=== PATIENT | male | born 1965 | race Caucasian/White ===

== ENCOUNTER 2019-05-19 19:50 | Emergency (ER) | payer MEDICAID ==
[~2019-05-19] VITALS: Ht 185.4 cm; Wt 95.3 kg
--- NOTE | 2019-05-19 19:50 | NUR ---
Patient triaged and placed in waiting room. VSS and patient appears in no acute distress at this time. Accompanied by SELF, awaiting available bed, and MD notified of need for MSE.
[2019-05-19 19:55] VITALS: BP_SYST 157
--- NOTE | 2019-05-19 23:45 | NUR ---
Patient to ER bed 4 to gown for evaluation. Side rails up. Report given to Osmar OHARA.
--- NOTE | 2019-05-20 | NUR ---
Pt brought in by self. Pt states that he has had problems with his trach tube falling out. Pt states that he doesnt need it anymore, he just has yet to have it removed. Pt denies pain, nausea, vomiting, diarrhea, shortness of breath or chest pain. Pt Awake, alert, oriented x4. Pt denies any other medical complaint at this time. VSS
--- NOTE | 2019-05-20 00:05 | NUR ---
ER at bedside examining patient.
--- NOTE | 2019-05-20 01:30 | NUR ---
Pt resting in ED bed comfortably. No s/s of distress.
[2019-05-20 02:23] VITALS: BP_SYST 147
--- NOTE | 2019-05-20 02:23 | NUR ---
Patient given written and verbal discharge instructions and verbalizes understanding. ER MD discussed with patient the results and treatment provided. Patient in stable condition. ID arm band removed. No IV Catheter No RX given. Patient educated on pain management and to follow up with PMD. Pain Scale 0/10. Opportunity for questions provided and answered.
== END 2019-05-20 02:23 | disposition home or self-care (01) ==
LOC: SED 19:50
DX: J95.03 Malfunction of tracheostomy stoma (principal); K94.23 Gastrostomy malfunction; F17.200 Nicotine dependence, unspecified, uncomplicated; Z71.6 Tobacco abuse counseling
CPT/HCPCS: 71045; 99283

== ENCOUNTER 2019-12-02 20:41 | Emergency (ER) | payer MEDICAID ==
[~2019-12-02] VITALS: Ht 185.4 cm; Wt 108.9 kg
[2019-12-02 21:20] VITALS: BP_SYST 151
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
--- NOTE | 2019-12-02 21:20 | NUR ---
PT WAITING IN TRIAGE CURRENTLY, WAITING FOR ER BED.
--- NOTE | 2019-12-02 21:35 | NUR ---
ER Dr. HAWLEY IN TRIAGE EXAMINING PT BECAUSE PT DOES NOT WANT TO GO INTO ER IN FEAR OF BEING EXPOSED TO COVID 19.
[2019-12-02 21:54] VITALS: BP_SYST 151
--- NOTE | 2019-12-02 22:41 | NUR ---
Patient given written and verbal discharge instructions and verbalizes understanding. ER MD discussed with patient the results and treatment provided. Patient in stable condition. ID arm band removed. IV catheter removed intact and dressing applied, no active bleeding. Patient educated on pain management and to follow up with PMD. Opportunity for questions provided and answered. Medication side effect fact sheet provided.
== END 2019-12-02 21:54 | disposition home or self-care (01) ==
LOC: SED 20:41
DX: R00.2 Palpitations (principal); Z88.5 Allergy status to narcotic agent; Z88.6 Allergy status to analgesic agent
CPT/HCPCS: 93005; 99283

== ENCOUNTER 2021-01-01 12:40 | Emergency (ER) | payer MEDICAID ==
[~2021-01-01] VITALS: Ht 185.4 cm; Wt 110.2 kg
[2021-01-01 12:45] VITALS: BP_SYST 119
--- NOTE | 2021-01-01 12:50 | NUR ---
Patient to ER bed 4 to gown for evaluation. Side rails up.
--- NOTE | 2021-01-01 12:51 | NUR ---
EKG DONE AND GIVEN TO
--- NOTE | 2021-01-01 13:00 | NUR ---
PT ARRIVES FROM HOME W/ C/O HEART PALPITATIONS UPON EXCERTION. PT STATES, "THAT HE CAN SEE THE HEART PALPITATIONS IN HIS EYS". PT HAS HX OF ASTHMA, USES INHALERS AT HOME
[2021-01-01 13:26] LABS: BASOPHILS # (AUTO) 0.1 K/uL (0.0-0.2); BASOPHILS % (AUTO) 0.8 % (0.0-2.0); EOSINOPHILS # (AUTO) 0.1 K/uL (0.0-0.4); EOSINOPHILS % (AUTO) 1.8 % (0.0-4.0); HEMATOCRIT 47.5 % (36-54); HEMOGLOBIN 16.1 g/dL (14.0-18.0); LYMPHOCYTES # (AUTO) 1.5 K/uL (1.0-5.5); LYMPHOCYTES % (AUTO) 22.4 % (20.5-51.5); MEAN CORPUSCULAR HEMOGLOBIN 29 pg (27-31); MEAN CORPUSCULAR HGB CONC 34 % (32-36); MEAN CORPUSCULAR VOLUME 86 fL (79.0-98.0); MONOCYTES # (AUTO) 0.5 K/uL (0.0-1.0); MONOCYTES % (AUTO) 7.4 % (1.7-9.3); NEUTROPHILS # (AUTO) 4.7 K/uL (1.8-7.7); NEUTROPHILS % (AUTO) 67.6 % (40.0-70.0); PLATELET COUNT (AUTO) 221 K/uL (130-430); RED BLOOD CELL COUNT(AUTO) 5.53 MIL/uL (4.2-6.2); RED CELL DISTRIBUTION WIDTH 14.8 % (9.0-15.0); WHITE BLOOD COUNT (AUTO) 6.9 K/uL (4.8-10.8)
--- NOTE | 2021-01-01 14:10 | NUR ---
CAROLYN Ziegler at bedside examining patient.
[2021-01-01 14:19] LABS: ANION GAP 9 (5-15); CALCIUM 9.1 mg/dL (8.4-11.0); CHLORIDE 106 mmol/L (98-107); GLUCOSE 123 mg/dL (70-99); POTASSIUM 3.8 mmol/L (3.5-5.1); SODIUM SERUM 140 mmol/L (136-145)
[2021-01-01 14:20] LABS: ALANINE AMINOTRANSFERASE 38 U/L (12-78); ALBUMIN 3.7 g/dL (3.4-4.8); ASPARTATE AMINOTRANSFERASE 24 U/L (10-37); CREATININE 0.92 mg/dL (0.55-1.30); GFR AFRICAN AMERICAN 109 mL/min (>90); TOTAL BILIRUBIN 0.4 mg/dL (0.0-1.0); UREA NITROGEN, BLOOD 16 mg/dL (8-21)
[2021-01-01 14:28] VITALS: BP_SYST 119
--- NOTE | 2021-01-01 14:30 | NUR ---
Patient given written and verbal discharge instructions and verbalizes understanding. ER MD discussed with patient the results and treatment provided. Patient in stable condition. ID arm band removed. Patient educated on pain management and to follow up with PMD. Pain Scale 0/10. Opportunity for questions provided and answered. Medication side effect fact sheet provided.
== END 2021-01-01 14:30 | disposition home or self-care (01) ==
LOC: SED 12:40
DX: R00.2 Palpitations (principal); J45.909 Unspecified asthma, uncomplicated; Z88.8 Allergy status to other drugs, medicaments and biological substances
CPT/HCPCS: 36415; 71045; 80053; 83880; 84484; 85025; 93005; 99285

== ENCOUNTER 2021-09-06 00:39 | Emergency (ER) | payer MEDICAID ==
[~2021-09-06] VITALS: Ht 185.4 cm; Wt 112.5 kg
[2021-09-06 00:40] VITALS: BP_SYST 102
--- NOTE | 2021-09-06 00:40 | NUR ---
Placed in room 05 . Placed on security monitor, blood pressure machine and pulse oximeter. To gown for exam. Side rails up. Report given to LEV Kaur
--- NOTE | 2021-09-06 00:45 | NUR ---
Patient states, "at 8:30 pm last night, I drank ocean spray cranberry juice and I felt pain." PAtient sitting in bed with no s/s of distress. Patient states pain is 7/10. Addendum: 09/06/21 at 0418 by [email or web address] Patient states, "at 8:30 pm last night, I drank ocean spray cranberry juice and I felt pain." PAtient sitting in bed with no s/s of distress. Patient states pain is 710. PAtient placed on 2L NC, oxygen saturation 98%.
[2021-09-06] MEDS ORDERED: ASPIRIN 81 MG TAB.CHEW PO ONE ×2 (01:15→09:00)
[2021-09-06] MEDS ORDERED: ASPIRIN 81 MG TAB.CHEW ONE (01:30)
[2021-09-06] MEDS: MAG HYDROX/AL HYDROX/SIMETH 30 ML, LIDOCAINE VISCOUS 2% 15ML (PO) 15 ML, DICYCLOMINE HC... PO ONE ×6 (01:35→02:03)
[2021-09-06 01:39] LABS: HEMOGLOBIN 12.2 g/dL (14.0-18.0)
[2021-09-06] MEDS ORDERED: DICYCLOMINE HCL 10 MG/5 ML SOLUTION ONE (01:39)
[2021-09-06] MEDS ORDERED: MAG-AL HYDROX/SIMETH 30 ML UDC ONE (01:39)
[2021-09-06] MEDS ORDERED: LIDOCAINE VISCOUS 2%, 15 ML UDC ONE (01:44)
[2021-09-06] MEDS ORDERED: DICYCLOMINE HCL 10 MG CAPSULE ONE (01:49)
[2021-09-06 01:53] LABS: BASOPHILS % (AUTO) 0.4 % (0.0-2.0); EOSINOPHILS # (AUTO) 0.3 K/uL (0.0-0.4); EOSINOPHILS % (AUTO) 2.6 % (0.0-4.0); HEMATOCRIT 36.3 % (36-54); LYMPHOCYTES # (AUTO) 2.1 K/uL (1.0-5.5); LYMPHOCYTES % (AUTO) 20.3 % (20.5-51.5); MEAN CORPUSCULAR HEMOGLOBIN 29 pg (27-31); MEAN CORPUSCULAR HGB CONC 34 % (32-36); MEAN CORPUSCULAR VOLUME 85 fL (79.0-98.0); MONOCYTES # (AUTO) 1.3 K/uL (0.0-1.0); MONOCYTES % (AUTO) 13.2 % (1.7-9.3); NEUTROPHILS # (AUTO) 6.5 K/uL (1.8-7.7); NEUTROPHILS % (AUTO) 63.5 % (40.0-70.0); PLATELET COUNT (AUTO) 289 K/uL (130-430); RED CELL DISTRIBUTION WIDTH 14.9 % (9.0-15.0); WHITE BLOOD COUNT (AUTO) 10.2 K/uL (4.8-10.8)
[2021-09-06 02:13] LABS: ANION GAP 9 (5-15); CALCIUM 8.9 mg/dL (8.4-11.0); CHLORIDE 102 mmol/L (98-107); CREATININE 1.16 mg/dL (0.55-1.30); GLUCOSE 99 mg/dL (70-99); POTASSIUM 3.4 mmol/L (3.5-5.1); SODIUM SERUM 138 mmol/L (136-145); UREA NITROGEN, BLOOD 19 mg/dL (8-21)
[2021-09-06 02:23] LABS: ALANINE AMINOTRANSFERASE 68 U/L (12-78); ALBUMIN 2.7 g/dL (3.4-4.8); ASPARTATE AMINOTRANSFERASE 50 U/L (10-37); TOTAL BILIRUBIN 0.4 mg/dL (0.0-1.0)
[2021-09-06 02:24] LABS: GFR AFRICAN AMERICAN 83 mL/min (>90)
--- NOTE | 2021-09-06 02:30 | NUR ---
Patient lying in bed, no s/s of distress. Patient A/Ox4, resting in bed with eyes open. Addendum: 09/06/21 at 0424 by [email or web address] Patient lying in bed, no s/s of distress. Patient A/Ox4, resting in bed with eyes open, with 2L NC O2 saturation 95%
[2021-09-06] MEDS ORDERED: LIP20 PO (02:55)
[2021-09-06] MEDS ORDERED: LISI10TA29 PO (02:55)
[2021-09-06] MEDS ORDERED: MORPHINE 4 MG INJ. 4 MG/ML VIAL IVP ONE ×3 (03:00→04:45)
[2021-09-06] MEDS ORDERED: LISINOPRIL 10 MG TABLET (PRINIVIL) PO ONE (03:00)
[2021-09-06] MEDS ORDERED: NITROGLYCERIN 0.4 MG TAB.SUBL SL PRN (03:00)
[2021-09-06] MEDS ORDERED: NITROGLYCERIN 0.4 MG TAB.SUBL SL ONE (03:00)
--- NOTE | 2021-09-06 03:06 | NUR ---
Admit bed requested Patient will be admitted to care of . Admitted to Tele unit. Diagnosis: Chest Pain Inpatient Yes Observation No Orientation concerns or request close to nursing station NO Covid Status (pending at this time) On vent or bipap No Isolation requirements (Pending covid results) Needs a sitter NO From Home No Requires Dialysis NO Med Rec Completed Yes
--- NOTE | 2021-09-06 03:25 | NUR ---
Patient lying in bed, no s/s of distress. Patient A/Ox4, resting in bed with eyes open, with 2L NC O2 saturation 97%. Patient stated "the medication that you gave earlier for pain didn't help." Dr. Earl verbally informed. Dr. Earl verbalized understanding, stated that he will put in pain medication orders.
--- NOTE | 2021-09-06 03:28 | NUR ---
Dr. Fonseca notified via telephone of patient's current BP of 91.[address] Fonseca stated, "Don't give morphine. Give nitropaste and sublingual Nitroglycerin." Readback complete. Addendum: 09/06/21 at [email or web address] Fonseca notified via telephone of patient's current BP of 91.58 HR 69, and medication orders which Dr. Earl ordered, including; Nitropaste, Nitroglycerin and Morphine. Dr. Fonseca stated, "Don't give morphine. Give nitropaste and sublingual Nitroglycerin." Readback complete.
[2021-09-06] MEDS ORDERED: NS 500 ML IV ONE ×2 (03:30→04:30)
--- NOTE | 2021-09-06 03:45 | NUR ---
Patient received 1 pill sublingual Nitroglycerin. No change in patient's pain. Patient states pain is 9/10.
[2021-09-06] MEDS: NITROGLYCERIN 1 INCH (GM) OINT. TP ONE ×2 (03:48→03:49)
--- NOTE | 2021-09-06 03:50 | NUR ---
Patient received 1 pill sublingual Nitroglycerin. No change in patient's pain. Patient states pain is still 9/10.
--- NOTE | 2021-09-06 03:55 | NUR ---
Patient received 1 pill sublingual Nitroglycerin. No change in patient's pain. Patient states pain is still 9. Addendum: 09/06/21 at 0356 by [email or web address] Amendment undone in ED - 09/06/21 at 0407 by [email or web address] Patient received 1 pill sublingual Nitroglycerin. No change in patient's pain. Patient states pain is still 02/03. Dr. Earl verbally informed. Dr. Earl verbalized understanding. Addendum: 09/06/21 at 0408 by [email or web address] Amendment undone in ED - 09/06/21 at 0408 by [email or web address] Patient received 1 pill sublingual Nitroglycerin. No change in patient's pain. Patient states pain is still 02/03. Dr. Fonseca verbally informed. Dr. Fonseca verbalized understanding. Addendum: 09/06/21 at 0408 by [email or web address] Patient received 1 pill sublingual Nitroglycerin. No change in patient's pain. Patient states pain is still 9/10. Dr. Fonseca verbally informed. Dr. Fonseca verbalized understanding. No new orders
--- NOTE | 2021-09-06 04:00 | NUR ---
Dr. Earl spoke to Dr. Fonseca. Dr. Earl stated, "Dr. Kumari canceled the admition. He feels the patient isn't stable enough to be admitted here."
--- NOTE | 2021-09-06 04:20 | NUR ---
Dr. Earl ordered Bipap. RT in room administering Bipap to patient.
--- NOTE | 2021-09-06 04:24 | NUR ---
FAXED OVER EKG'S TO [facility]
--- NOTE | 2021-09-06 04:40 | NUR ---
[facility] ER MD declined transfer of patient at this time.
[2021-09-06] MEDS ORDERED: fentaNYL CITRATE/PF 100 MCG/2 ML AMP ONE (04:44)
[2021-09-06] MEDS ORDERED: fentaNYL CITRATE/PF 100 MCG/2 ML AMP IVP ONE (04:45)
--- NOTE | 2021-09-06 04:50 | NUR ---
ICC ER MD 2nd call recommends STEMI transfer for the patient
[2021-09-06] MEDS ORDERED: IOHEXOL 350 mgI/mL, 150 ML INFUS..BTL IV ONE (04:51)
--- NOTE | 2021-09-06 05:22 | NUR ---
Patient to be transferred to [facility]. Is being transferred due to higher level of care. Receiving facility has accepting physician and available space. ER physician Dr. Earl has signed transfer form. Patient or responsible libertarian has agreed to transfer and signed form. Patient belongings inventoried and will be sent with patient. Copy of nursing notes, lab reports, EKG, Physicians Orders and X-rays to be sent with patient. Report called and given to Leni RN at receiving facility. Leni RN verbalized understanding of report, no further questions. Receiving physician is Dr. Seth. [facility] ambulance service has been called for transfer. Patient is being transferred to [facility].
[2021-09-06 05:25] VITALS: BP_SYST 100
[2021-09-06] MEDS ORDERED: ATORVASTATIN 20 MG TABLET PO SCH (09:00)
== END 2021-09-06 05:25 | disposition short-term general hospital (02) ==
LOC: SED 00:39 → UNDOADMIN 02:52 → STU 02:52 → SED 05:25
DX: I21.4 Non-ST elevation (NSTEMI) myocardial infarction (principal); I24.9 Acute ischemic heart disease, unspecified; J96.00 Acute respiratory failure, unspecified whether with hypoxia or hypercapnia; I50.23 Acute on chronic systolic (congestive) heart failure; I10 Essential (primary) hypertension; K21.9 Gastro-esophageal reflux disease without esophagitis; Z88.5 Allergy status to narcotic agent; Z88.6 Allergy status to analgesic agent; Z79.899 Other long term (current) drug therapy; Z20.822 Contact with and (suspected) exposure to COVID-19
CPT/HCPCS: 36415; 71045; 80053; 83880; 84484; 85025; 87426; 93005; 96361; 96374; 96375; 99291; 99292; J2001; J2270; J3010; J7040; 99285; Q9967